=== PATIENT | male | born 1985 | race Native Hawaiian/Other Pacific Islander ===

== ENCOUNTER 2023-06-20 12:35 | Emergency (ER) | payer OTHER, SELFPAY ==
[2023-06-20] VITALS (68 sets, daily range): BP systolic 74–125; BP diastolic 38–64; PULSE 0–105; RESP 11–34; O2SAT 92
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
[2023-06-20] MEDS: Normal Saline 1,000 ML 1000 ML IV (12:56)
[2023-06-20 12:58] LABS: BE (Venous) -5 mmol/L (-2-3); HCO3 (Venous) 22 mmol/L (23-28); O2 Sat (Venous) 82 %; TCO2 (Venous) 20 mmol/L (24-29); pCO2 (Venous) 47 mmHg (41-51); pH (Venous) 7.27 (7.31-7.41); pO2 (Venous) 52 mmHg
[2023-06-20 12:58] LABS: Absolute Eosinophil Count 0.58 10^3/uL (0.0-0.7); Absolute Lymphocyte Count 4.39 10^3/uL (1.2-3.4); Basophils % 0.9; Eosinophils % 5.1; HCT 37.3 % (40.0-50.0); HGB 12.4 g/dL (13.5-17.5); Immature Grans % 0.9; Lymphocytes % 38.3; MCHC 33.2 % (32.0-36.0); MCV 99 fL (80-95); Neutrophils % 47.8; Platelet Count 290 10^3/uL (130-400); RBC 3.76 10^6/uL (4.36-5.78); RDW 13.1 % (11.8-14.1); RDW-SD 47.4 fL; WBC 11.46 10^3/uL (4.4-10.8)
[2023-06-20] MEDS: Normal Saline - Diluent 50 ML VIAL IJ (12:58)
[2023-06-20 13:01] LABS: Absolute Neutrophil Count 5.48 10^3/uL (1.2-6.7)
[2023-06-20] MEDS: Normal Saline Flush 10 ML SYR IVP (13:02)
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
[2023-06-20 13:16] LABS: INR 1.1 (0.9-1.1); PTT Activated 22.3 sec (23.6-32.8); Prothrombin Time 11.4 sec (9.1-11.1)
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
[2023-06-20 13:25] LABS: ALT 546 U/L (16-63); AST 418 U/L (15-37); Albumin 3.6 g/dL (3.4-5.0); Alkaline Phosphatase 45 U/L (46-116); Anion Gap 13.4 mmol/L (3-11); BUN 18 mg/dL (7-18); Bilirubin, Total 0.5 mg/dL (0.2-1.0); CO2 24.6 mmol/L (21.0-32.0); CREATININE 1.5 mg/dL (0.70-1.30); Calcium 8.7 mg/dL (8.5-10.1); Chloride 102 mmol/L (98-107); ETHANOL BLOOD 99.5 mg/dL (<10); Estimated GFR 59.98 (mL/min/1.73m2); Glucose 125 mg/dL (74-106); Lipase 48 U/L (16-77); Potassium 3.5 mmol/L (3.5-5.1); Sodium 140 mmol/L (136-145); Total Protein 6.9 g/dL (6.4-8.2); Troponin I < 50 ng/L (<or=60)
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
--- NOTE | 2023-06-20 14:17 | NUR.NOTE ---
Reema morris [phone] Nursing Note:
[2023-06-20] MEDS: fentaNYL 100 MCG/2 ML VIAL (15:15)
[2023-06-21 15:51] LABS: Kit/Specimen SENT
== END 2023-06-20 15:57 | disposition short-term general hospital (02) ==
PROVIDERS: Emergency Provider Emergency Medicine
DX: S01.112A Laceration without foreign body of left eyelid and periocular area, initial encounter (principal); S22.42XA Multiple fractures of ribs, left side, initial encounter for closed fracture; S22.22XA Fracture of body of sternum, initial encounter for closed fracture; S42.111A Displaced fracture of body of scapula, right shoulder, initial encounter for closed fracture; S32.19XA Other fracture of sacrum, initial encounter for closed fracture; S32.2XXA Fracture of coccyx, initial encounter for closed fracture; S27.321A Contusion of lung, unilateral, initial encounter; J93.83 Other pneumothorax; R40.2412 Glasgow coma scale score 13-15, at arrival to emergency department; K76.0 Fatty (change of) liver, not elsewhere classified; F17.210 Nicotine dependence, cigarettes, uncomplicated; V47.5XXA Car driver injured in collision with fixed or stationary object in traffic accident, initial encounter; W22.11XA Striking against or struck by driver side automobile airbag, initial encounter
CPT/HCPCS: 36415; 74177; 80053; 82805; 82962; 83690; 96360; 99285; 70450; 71045; 71260; 72125; 72170; 73590; 73610; 80320; 84484; 85025; 85610; 85730; J3010